=== PATIENT | male | born 1985 | race Caucasian/White ===

== ENCOUNTER 2017-08-26 09:22 | Observation (INO) | payer OTHER, SELFPAY ==
[2017-08-26 09:24] VITALS: BMI 26.6
--- NOTE | 2017-08-26 10:00 | ED PDOC ---
HPI: Skin/Bite Injury Time Seen by Provider: 08/26/17 09:35 Chief Complaint (Nursing): Abnormal Skin Integrity Chief Complaint (Provider): Abnormal Skin Integrity History Per: Patient History/Exam Limitations: no limitations Onset/Duration Of Symptoms: Days (x 3) Current Symptoms Are (Timing): Still Present Quality Of Symptoms: Itching Additional Complaint(s): 32 year old HIV positive male presents to the ED with a itchy rash for the last 3 days. He is from [place] and reports that his vaccinations are UTD. Denies any other complaints. PMD: none provided Past Medical History Reviewed: Historical Data, Nursing Documentation, Vital Signs Vital Signs: Last Vital Signs Temp 98.5 F 08/26/17 09:25 Pulse 105 H 08/26/17 09:25 Resp 17 08/26/17 09:25 BP 155/95 H 08/26/17 09:25 Pulse Ox 98 08/26/17 09:27 - Medical History PMH: HIV Denies: Chronic Kidney Disease - Surgical History Surgical History: No Surg Hx - Family History Family History: States: Unknown Family Hx - Immunization History Hx Tetanus Toxoid Vaccination: No Hx Influenza Vaccination: No Hx Pneumococcal Vaccination: No - Home Medications Home Medications: Ambulatory Orders Medication Instructions Recorded Acetaminophen [Tylenol 325mg tab] 650 mg PO PRN PRN 09/10/16 Acetaminophen [Tylenol 325mg tab] 650 mg PO Q6 PRN tab 09/19/16 Ketorolac [Toradol] 30 mg IVP STAT vial 09/19/16 Ondansetron [Zofran Inj] 4 mg IVP Q6H PRN vial 09/19/16 Topiramate [Topamax] 25 mg PO HS tab 09/19/16 levETIRAcetam [Keppra] 500 mg IVPB Q12H vial 09/19/16 levETIRAcetam [Keppra] 500 mg IVPB Q12H vial 09/19/16 - Allergies Allergies/Adverse Reactions: Allergies Allergy/AdvReac Type Severity Reaction Status Date / Time No Known Allergies Allergy Verified 08/26/17 09:27 Review of Systems ROS Statement: Except As Marked, All Systems Reviewed And Found Negative Skin: Positive for: Rash Physical Exam - Reviewed Nursing Documentation Reviewed: Yes Vital Signs Reviewed: Yes - Physical Exam Appears: Positive for: No Acute Distress Head Exam: Positive for: ATRAUMATIC, NORMOCEPHALIC Skin: Positive for: Rash (general vesicular rsh in different stages of healing. No (-) secondary infection noted) Eye Exam: Positive for: EOMI, Normal appearance, PERRL Neck: Positive for: Normal Cardiovascular/Chest: Positive for: Regular Rate, Rhythm Respiratory: Positive for: CNT, Normal Breath Sounds Gastrointestinal/Abdominal: Positive for: Normal Exam, Soft Neurologic/Psych: Positive for: Alert, Oriented (x 3) - ECG O2 Sat by Pulse Oximetry: 98 (RA) Pulse Ox Interpretation: Normal Medical Decision Making Medical Decision Making: Time; 09:56 Impression: rash Initial Plan: --EKG --CMP --CBC --Chest x-ray --Acyclovir 800 mg in NS 100 ml IV --Blood cx Scribe Attestation: Documented by Chika Jorge, acting as a scribe for Tiffany Lamas MD Provider Scribe Attestation: All medical record entries made by the Scribe were at my direction and personally dictated by me. I have reviewed the chart and agree that the record accurately reflects my personal performance of the history, physical exam, medical decision making, and the department course for this patient. I have also personally directed, reviewed, and agree with the discharge instructions and disposition. Disposition - Disposition Forms: [employer] ([place])
[2017-08-26 10:17] LABS: BASO % 0.4 % (0.0-2.0); HEMOGLOBIN 15.9 g/dL (12.0-18.0); LYMPH # 1.8 K/uL (1.0-4.3); LYMPH % 17.6 % (20.0-40.0); MEAN CELL VOLUME 86.4 fl (80.0-94.0); MEAN CORPUSCULAR HGB CONC 34.7 g/dL (33.0-37.0); MEAN PLATELET VOLUME 8.5 fl (7.2-11.7); MONO # 1.4 K/uL (0.0-0.8); MONO % 14.1 % (0.0-10.0); NEUT # 6.9 K/uL (1.8-7.0); NEUT % 67.9 % (50.0-75.0); NRBC % 0.1 % (0.0-0.0); RBC 5.3 Mil/uL (4.40-5.90); RED CELL DISTRIBUTION WIDTH 13.6 % (11.5-14.5); WHITE BLOOD COUNT 10.2 K/uL (4.8-10.8)
[2017-08-26 10:28] LABS: ALB/GLOB RATIO 1.1 (1.0-2.1); ALBUMIN 4.6 g/dL (3.5-5.0); ALT/SGPT 90 U/L (21-72); AST/SGOT 49 U/L (17-59); BLOOD UREA NITROGEN 12 mg/dl (9-20); CALCIUM 9.4 mg/dL (8.4-10.2); GFR AFRICAN-AMERICAN > 60; GFR NON-AFRICAN AMERICAN > 60
--- NOTE | 2017-08-26 10:58 | RAD ---
HISTORY: Admission COMPARISON: No prior. FINDINGS: LUNGS: No active pulmonary disease. PLEURA: No significant pleural effusion identified, no pneumothorax apparent. CARDIOVASCULAR: Normal. OSSEOUS STRUCTURES: No significant abnormalities. VISUALIZED UPPER ABDOMEN: Normal. OTHER FINDINGS: None. IMPRESSION: No active disease.
--- NOTE | 2017-08-26 12:50 | CP.PCM.HP ---
History of Present Illness - History of Present Illness History of Present Illness: 32 y/o M with a PMHx of positive-HIV presented to ED c/o 3 days-Hx of fever and rash. Rash started on frontal head, painless, is pruritic at times and has extends down to his entire body. Pt reports associated generalized body aches and weakness. Pt reports being adherent to all his medications, takes 4 in total. No recent travel outside of [facility]. No ill contacts. PMD: Dr Galloway. 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 PSHx: denied FHx: NC, denied SHx: Pt stopped smoking 10 years ago, smoked for 8 years ~2ppd. Pt stopped alcohol intake for >1 year. No rec drugs use. ED Course: --CBC and CMP were abnormal. --Chest x-ray - No active disease. --EKG-unremarkable. --Acyclovir 800 mg in NS 100 ml IV x1 dose administered. --F/U Blood Cx. Present on Admission - Present on Admission Any Indicators Present on Admission: No Review of Systems - Constitutional Constitutional: absent: Anorexia, Weight Gain - EENT Eyes: absent: Change in Vision, Diplopia, Discharge Ears: absent: Decreased Hearing, Ear Discharge Nose/Mouth/Throat: absent: Epistaxis, Nasal Trauma, Bleeding Gums, Neck Mass - Cardiovascular Cardiovascular: absent: Acrocyanosis, Chest Pain, Claudication - Respiratory Respiratory: absent: Cough, Dyspnea, Hemoptysis, Dyspnea on Exertion, Snoring, Stridor - Gastrointestinal Gastrointestinal: absent: Bloating, Change in Bowel Habits, Change in Stool Character, Constipation, Diarrhea - Genitourinary Genitourinary: absent: Change in Urinary Stream, Dysuria - Psychiatric Psychiatric: absent: Anhedonia, Anxiety, Behavioral Changes, Change in Appetite Past Patient History - Infectious Disease Hx of Infectious Diseases: None - Past Social History Smoking Status: Former Smoker - NEUROLOGICAL Other/Comment: headache for 15 days - HEENT Hx HEENT Problems: No - RENAL Hx Chronic Kidney Disease: No - ENDOCRINE/METABOLIC Hx Endocrine Disorders: No - HEMATOLOGICAL/ONCOLOGICAL Hx Human Immunodeficiency Virus (HIV): Yes - INTEGUMENTARY Hx Dermatological Problems: No - MUSCULOSKELETAL/RHEUMATOLOGICAL Hx Musculoskeletal Disorders: No Hx Falls: No - GASTROINTESTINAL Hx Gastrointestinal Disorders: No - GENITOURINARY/GYNECOLOGICAL Hx Genitourinary Disorders: No - PSYCHIATRIC Hx Psychophysiologic Disorder: No Hx Substance Use: No - SURGICAL HISTORY Hx Surgeries: No - ANESTHESIA Hx Anesthesia: No Meds Allergies/Adverse Reactions: Allergies Allergy/AdvReac Type Severity Reaction Status Date / Time No Known Allergies Allergy Verified 08/26/17 09:27 Physical Exam - Constitutional Appears: No Acute Distress - Head Exam Head Exam: NORMAL INSPECTION - Eye Exam Eye Exam: EOMI - ENT Exam ENT Exam: Mucous Membranes Moist, Normal Exam, Normal Oropharynx - Neck Exam Neck exam: Positive for: Full Rom, Normal Inspection. Negative for: Lymphadenopathy, Meningismus - Respiratory Exam Respiratory Exam: Clear to Auscultation Bilateral, NORMAL BREATHING PATTERN - Cardiovascular Exam Cardiovascular Exam: REGULAR RHYTHM, +S1, +S2 - GI/Abdominal Exam GI & Abdominal Exam: Normal Bowel Sounds, Soft. absent: Diminished Bowel Sounds , Guarding, Rebound, Rigid, Tenderness - Extremities Exam Extremities exam: Positive for: full ROM, normal inspection, pedal edema. Negative for: calf tenderness, joint swelling, tenderness - Neurological Exam Neurological exam: Alert, Oriented x3 - Skin Additional comments: Presence of maculo-papular dermatitis scattered all around body, most of the dermatological lesions appears crusted. Results - Vital Signs Recent Vital Signs: Last Vital Signs Temp 99.3 F 08/26/17 11:03 Pulse 88 08/26/17 11:03 Resp 20 08/26/17 11:03 BP 139/82 08/26/17 11:03 Pulse Ox 96 08/26/17 11:03 - Labs Result Diagrams: 08/26/17 10:10 08/26/17 10:10 Labs: Laboratory Results - last 24 hr 08/26/17 08/26/17 10:10 10:10 WBC 10.2 D RBC 5.30 Hgb 15.9 D Hct 45.8 MCV 86.4 D MCH 30.0 MCHC 34.7 RDW 13.6 Plt Count 208 MPV 8.5 Neut % (Auto) 67.9 Lymph % (Auto) 17.6 L [place] % (Auto) 14.1 H Eos % (Auto) 0.0 Baso % (Auto) 0.4 Neut # (Auto) 6.9 Lymph # (Auto) 1.8 [place] # (Auto) 1.4 H Eos # (Auto) 0.0 Baso # (Auto) 0.0 Sodium 139 Potassium 3.9 Chloride 100 Carbon Dioxide 25 Anion Gap 18 BUN 12 Creatinine 0.7 L Est GFR ( Amer) > 60 Est GFR (Non-Af Amer) > 60 Random Glucose 115 H Calcium 9.4 Total Bilirubin 0.4 AST 49 ALT 90 H D Alkaline Phosphatase 131 H D Total Protein 8.9 H Albumin 4.6 Globulin 4.3 H Albumin/Globulin Ratio 1.1 Assessment & Plan - Assessment and Plan (Free Text) Assessment: 32 y/o M with a PMHx of HIV infection admitted for evaluation and management of exanthem. Exanthem -Varicella, most probable. -Acyclovir 800mg IV Q8H -ID consult, Dr Winchester. -Hydroxyzine PO and topical Calamine for pruritus AIDS -Last CD4 count 168 on 06/10/17 -%CD4: 9% on 06/10/17 -C/w Genvoya (HAART) -Atovaquone 1,500mg daily PO -F/U Blood Cx. -ID consult, Dr Winchester. Hx of CLAY WASHER-Toxoplasmosis -C/w Atovaquone 1,500mg PO daily, Keppra 500mg Q12H, Leucovorin 25mg PO daily. DVT prophylaxis -SCD's for now - Date & Time Date: 08/26/17 Time: 15:30
--- NOTE | 2017-08-26 13:18 | CP.PCM.CON ---
History of Present Illness - History of Present Illness History of Present Illness: 32 y/o M with a PMHx of positive-HIV presented to ED c/o 3 days-Hx of fever and rash. Rash started on frontal head, painless, is pruritic at times and has extends down to his entire body. Pt reports associated generalized body aches and weakness. Pt reports being adherent to all his medications, takes 4 in total. No recent travel outside of [facility]. No ill contacts. PMD: Dr Galloway. NKDA Medications: >Genvoya [phone] MG PO daily >Atovaquone Suspension, 750 MG/5ML, 10 ml PO daily >Leucovorin, 25mg, 1 tab, Oral, once a day, 30 days, 30 Tablet, Refills 3 >Levetiracetam 500 MG Tablet 1 tablet Orally Twice a day PMHx: [employer] Toxoplasmosis and HIV-positive, both diagnosed September 2016. PSHx: denied FHx: NC, denied SHx: Pt stopped smoking 10 years ago, smoked for 8 years ~2ppd. Pt stopped alcohol intake for >1 year. No rec drugs use. Review of Systems - Review of Systems All systems: reviewed and no additional remarkable complaints except Past Patient History - Infectious Disease Hx of Infectious Diseases: None - Past Social History Smoking Status: Former Smoker - NEUROLOGICAL Other/Comment: headache for 15 days - HEENT Hx HEENT Problems: No - RENAL Hx Chronic Kidney Disease: No - ENDOCRINE/METABOLIC Hx Endocrine Disorders: No - HEMATOLOGICAL/ONCOLOGICAL Hx Human Immunodeficiency Virus (HIV): Yes - INTEGUMENTARY Hx Dermatological Problems: No - MUSCULOSKELETAL/RHEUMATOLOGICAL Hx Musculoskeletal Disorders: No Hx Falls: No - GASTROINTESTINAL Hx Gastrointestinal Disorders: No - GENITOURINARY/GYNECOLOGICAL Hx Genitourinary Disorders: No - PSYCHIATRIC Hx Psychophysiologic Disorder: No Hx Substance Use: No - SURGICAL HISTORY Hx Surgeries: No - ANESTHESIA Hx Anesthesia: No Meds Allergies/Adverse Reactions: Allergies Allergy/AdvReac Type Severity Reaction Status Date / Time No Known Allergies Allergy Verified 08/26/17 09:27 Physical Exam - Constitutional Appears: No Acute Distress, Chronically Ill - Head Exam Head Exam: ATRAUMATIC, NORMOCEPHALIC - Eye Exam Eye Exam: absent: Scleral icterus - ENT Exam ENT Exam: Mucous Membranes Dry - Neck Exam Neck exam: Negative for: Lymphadenopathy - Respiratory Exam Respiratory Exam: Decreased Breath Sounds - Cardiovascular Exam Cardiovascular Exam: REGULAR RHYTHM - GI/Abdominal Exam GI & Abdominal Exam: Diminished Bowel Sounds, Soft. absent: Tenderness - Rectal Exam Rectal Exam: Deferred - Exam Exam: NORMAL INSPECTION - Extremities Exam Extremities exam: Positive for: pedal pulses present. Negative for: calf tenderness, pedal edema, tenderness - Back Exam Back exam: absent: CVA tenderness (L), CVA tenderness (R) - Neurological Exam Neurological exam: Alert, CN II-XII Intact, Oriented x3, Reflexes Normal - Psychiatric Exam Psychiatric exam: Normal Mood - Skin Skin Exam: Rash Additional comments: diffuse maculo papular rash mostly dry very rare vesicles face trunk extremities Results - Vital Signs Recent Vital Signs: Last Vital Signs Temp 99.3 F 08/26/17 11:03 Pulse 88 08/26/17 11:03 Resp 20 08/26/17 11:03 BP 139/82 08/26/17 11:03 Pulse Ox 96 08/26/17 11:03 - Labs Result Diagrams: 08/27/17 05:45 08/27/17 05:45 Labs: Laboratory Results - last 24 hr 08/26/17 08/26/17 10:10 10:10 WBC 10.2 D RBC 5.30 Hgb 15.9 D Hct 45.8 MCV 86.4 D MCH 30.0 MCHC 34.7 RDW 13.6 Plt Count 208 MPV 8.5 Neut % (Auto) 67.9 Lymph % (Auto) 17.6 L [place] % (Auto) 14.1 H Eos % (Auto) 0.0 Baso % (Auto) 0.4 Neut # (Auto) 6.9 Lymph # (Auto) 1.8 [place] # (Auto) 1.4 H Eos # (Auto) 0.0 Baso # (Auto) 0.0 Sodium 139 Potassium 3.9 Chloride 100 Carbon Dioxide 25 Anion Gap 18 BUN 12 Creatinine 0.7 L Est GFR ( Amer) > 60 Est GFR (Non-Af Amer) > 60 Random Glucose 115 H Calcium 9.4 Total Bilirubin 0.4 AST 49 ALT 90 H D Alkaline Phosphatase 131 H D Total Protein 8.9 H Albumin 4.6 Globulin 4.3 H Albumin/Globulin Ratio 1.1 Assessment & Plan (1) Varicella infection Status: Acute (2) Varicella infection Status: Acute (3) AIDS Status: Acute (4) AIDS (acquired immunodeficiency syndrome), CD4 <=200 Status: Acute (5) AIDS (acquired immunodeficiency syndrome), CD4 <=200 Status: Acute - Assessment and Plan (Free Text) Assessment: cont iv then po acyclovir 800 5x daily for 10 days
[2017-08-26] MEDS ORDERED: Calamine/Zinc Oxide LOTION TOP PRN (14:21)
--- NOTE | 2017-08-26 15:20 | CARD ---
APPROVED REPORT EKG Measurement Heart [id number] <Conclusion> Normal sinus rhythm Normal ECG
[2017-08-27 06:23] LABS: BASO % 0.3 % (0.0-2.0); EOS % 0.5 % (0.0-4.0); HEMOGLOBIN 15.1 g/dL (12.0-18.0); LYMPH # 1.4 K/uL (1.0-4.3); LYMPH % 19.6 % (20.0-40.0); MEAN CELL VOLUME 86.1 fl (80.0-94.0); MEAN CORPUSCULAR HEMOGLOBIN 29.4 pg (27.0-31.0); MEAN CORPUSCULAR HGB CONC 34.2 g/dL (33.0-37.0); MEAN PLATELET VOLUME 8.5 fl (7.2-11.7); MONO # 1.1 K/uL (0.0-0.8); MONO % 14.3 % (0.0-10.0); NEUT # 4.8 K/uL (1.8-7.0); NEUT % 65.3 % (50.0-75.0); NRBC % 0.1 % (0.0-0.0); RBC 5.13 Mil/uL (4.40-5.90); RED CELL DISTRIBUTION WIDTH 13.7 % (11.5-14.5); WHITE BLOOD COUNT 7.4 K/uL (4.8-10.8)
[2017-08-27 06:35] LABS: ALB/GLOB RATIO 1.1 (1.0-2.1); ALT/SGPT 72 U/L (21-72); AST/SGOT 39 U/L (17-59); BLOOD UREA NITROGEN 11 mg/dl (9-20); CALCIUM 9.5 mg/dL (8.4-10.2); GFR AFRICAN-AMERICAN > 60; GFR NON-AFRICAN AMERICAN > 60
--- NOTE | 2017-08-27 08:57 | CP.PCM.PN ---
Subjective - Date & Time of Evaluation Date of Evaluation: 08/27/17 Time of Evaluation: 07:35 - Subjective Subjective: 32 y/o M seen and examined by bedside. Pt reports feeling better, rash is improving, last fever episode 101degF at 8:44pm. Pt tolerating PO, ambulating with NO difficulties. Pt denies headache, chest pain, SOB, abdominal pain, nausea, diarrhea or calf pain. Objective - Vital Signs/Intake and Output Vital Signs (last 24 hours): Temp Pulse Resp BP Pulse Ox 98.7 F 81 20 126/83 97 08/27/17 08:01 08/27/17 08:01 08/27/17 08:01 08/27/17 08:01 08/27/17 08:01 - Medications Medications: Current Medications Acetaminophen (Tylenol 325mg Tab) 650 mg PO Q4 PRN PRN Reason: Fever >100.4 F Last Admin: 08/26/17 20:45 Dose: 650 mg Atovaquone (Mepron) 1,500 mg PO DAILY ROBEL PRN Reason: Protocol Calamine (Calamine Lotion) 1 applic TOP CONT PRN PRN Reason: Itching / Pruritus Home Med (Elviteg/Cob/Emtri/Tenof Alafen [Genvoya Tablet]) 1 tab PO DAILY ROBEL Hydroxyzine HCl (Atarax) 25 mg PO Q6 PRN PRN Reason: Itching / Pruritus Acyclovir 800 mg/ Sodium (Chloride) 250 mls @ 250 mls/hr IV Q8 ROBEL PRN Reason: Protocol Last Admin: 08/27/17 00:49 Dose: 250 mls/hr Leucovorin Calcium (Leucovorin) 25 mg PO DAILY ROBEL Levetiracetam (Keppra) 500 mg PO Q12 [facility] Last Admin: 08/26/17 20:45 Dose: 500 mg - Labs Labs: 08/27/17 05:45 08/27/17 05:45 - Constitutional Appears: No Acute Distress - Head Exam Head Exam: NORMAL INSPECTION - Eye Exam Eye Exam: EOMI - ENT Exam ENT Exam: Mucous Membranes Moist - Neck Exam Neck Exam: Full ROM. absent: Lymphadenopathy - Respiratory Exam Respiratory Exam: Clear to Ausculation Bilateral, NORMAL BREATHING PATTERN - Cardiovascular Exam Cardiovascular Exam: REGULAR RHYTHM, +S1, +S2 - GI/Abdominal Exam GI & Abdominal Exam: Soft, Tenderness, Normal Bowel Sounds - Extremities Exam Extremities Exam: Full ROM. absent: Calf Tenderness, Pedal Edema - Neurological Exam Neurological Exam: Alert, Awake, Oriented x3 - Skin Additional comments: Diffuse maculo-papular dermatitis improving in appereance, lest erythema, still presence of small crusted lesion. Assessment and Plan - Assessment and Plan (Free Text) Assessment: 32 y/o M with a PMHx of HIV infection admitted for evaluation and management of exanthem. Exanthem -Varicella, most probable. -Acyclovir 800mg IV Q8H -Hydroxyzine PO and topical Calamine for pruritus -Awaiting ID recommendations. -Varicella, Measles and Roseola titers ordered. AIDS -Last CD4 count 168 on 06/10/17 -%CD4: 9% on 06/10/17 -HIV viral load undetectable. -C/w Genvoya (HAART) -Atovaquone 1,500mg daily PO -F/U Blood Cx. -Awaiting ID recommendations, Dr Winchester. 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 -C/w Atovaquone 1,500mg PO daily, Keppra 500mg Q12H, Leucovorin 25mg PO daily. DVT prophylaxis -SCD's for now
[2017-08-27] MEDS ORDERED: Patient's Own Med (Elviteg/Cob/Emtri/Tenof Alafen [Genvoya Tablet] 1 TAB) PO SCH (09:00)
--- NOTE | 2017-08-27 12:02 | CP.PCM.PN ---
Subjective - Date & Time of Evaluation Date of Evaluation: 08/27/17 Time of Evaluation: 09:00 - Subjective Subjective: improving on IV acyclovir no signs of systemic toxicity , secondary infection or PHYSICAL INSTRUCTOR / pulm involvement Objective - Vital Signs/Intake and Output Vital Signs (last 24 hours): Temp Pulse Resp BP Pulse Ox 98.7 F 81 20 126/83 97 08/27/17 08:01 08/27/17 08:01 08/27/17 08:01 08/27/17 08:01 08/27/17 08:01 - Medications Medications: Current Medications Acetaminophen (Tylenol 325mg Tab) 650 mg PO Q4 PRN PRN Reason: Fever >100.4 F Last Admin: 08/26/17 20:45 Dose: 650 mg Atovaquone (Mepron) 1,500 mg PO DAILY ROBEL PRN Reason: Protocol Calamine (Calamine Lotion) 1 applic TOP CONT PRN PRN Reason: Itching / Pruritus Home Med (Elviteg/Cob/Emtri/Tenof Alafen [Genvoya Tablet]) 1 tab PO DAILY ROBEL Hydroxyzine HCl (Atarax) 25 mg PO Q6 PRN PRN Reason: Itching / Pruritus Acyclovir 800 mg/ Sodium (Chloride) 250 mls @ 250 mls/hr IV Q8 ROBEL PRN Reason: Protocol Last Admin: 08/27/17 00:49 Dose: 250 mls/hr Leucovorin Calcium (Leucovorin) 25 mg PO DAILY ROBEL Levetiracetam (Keppra) 500 mg PO Q12 [facility] Last Admin: 08/26/17 20:45 Dose: 500 mg - Labs Labs: 08/27/17 05:45 08/27/17 05:45 - Constitutional Appears: Non-toxic, Chronically Ill - Head Exam Head Exam: NORMOCEPHALIC - Eye Exam Eye Exam: PERRL - ENT Exam ENT Exam: Mucous Membranes Dry - Neck Exam Neck Exam: absent: Lymphadenopathy - Respiratory Exam Respiratory Exam: Decreased Breath Sounds - Cardiovascular Exam Cardiovascular Exam: REGULAR RHYTHM - GI/Abdominal Exam GI & Abdominal Exam: Distended, Soft Assessment and Plan (1) Varicella infection Status: Acute (2) Varicella infection Status: Acute (3) AIDS Status: Acute (4) AIDS (acquired immunodeficiency syndrome), CD4 <=200 Status: Acute (5) AIDS (acquired immunodeficiency syndrome), CD4 <=200 Status: Acute - Assessment and Plan (Free Text) Assessment: cont IV then PO acyclovir 800 5x daily for 10 days
[2017-08-27] MEDS: Atovaquone 750 mg/5 ml Susp UD PO SCH (13:03)
[2017-08-28 00:56] VITALS: O2SAT 98
[2017-08-28 07:49] VITALS: BP 134/81; PULSE 69; RESP 20; TEMP 98.1
--- NOTE | 2017-08-28 08:55 | CP.PCM.DIS ---
Provider - Provider Date of Admission: 08/26/17 11:14 Attending physician: Isela Davis MD Primary care physician: Dr Galloway. Consults: Infectious Disease: Dr Winchester. Time Spent in preparation of Discharge (in minutes): 25 Diagnosis - Discharge Diagnosis (1) Varicella infection Status: Acute Comment: Will complete 10 days of Acyclovir 800mg five times a day for 10 days. Hospital Course - Lab Results Lab Results: Micro Results 08/26/17 10:15 Blood Blood Culture - Preliminary NO GROWTH AFTER 24 HOURS 08/26/17 10:10 Blood Blood Culture - Preliminary NO GROWTH AFTER 24 HOURS Most Recent Lab Values WBC 7.4 K/uL (4.8-10.8) 08/27/17 05:45 RBC 5.13 Mil/uL (4.40-5.90) 08/27/17 05:45 Hgb 15.1 g/dL (12.0-18.0) 08/27/17 05:45 Hct 44.2 % (35.0-51.0) 08/27/17 05:45 MCV 86.1 fl (80.0-94.0) 08/27/17 05:45 MCH 29.4 pg (27.0-31.0) 08/27/17 05:45 MCHC 34.2 g/dL (33.0-37.0) 08/27/17 05:45 RDW 13.7 % (11.5-14.5) 08/27/17 05:45 Plt Count 196 K/uL (130-400) 08/27/17 05:45 MPV 8.5 fl (7.2-11.7) 08/27/17 05:45 Neut % (Auto) 65.3 % (50.0-75.0) 08/27/17 05:45 Lymph % (Auto) 19.6 % (20.0-40.0) L 08/27/17 05:45 [place] % (Auto) 14.3 % (0.0-10.0) H 08/27/17 05:45 Eos % (Auto) 0.5 % (0.0-4.0) 08/27/17 05:45 Baso % (Auto) 0.3 % (0.0-2.0) 08/27/17 05:45 Neut # (Auto) 4.8 K/uL (1.8-7.0) 08/27/17 05:45 Lymph # (Auto) 1.4 K/uL (1.0-4.3) 08/27/17 05:45 [place] # (Auto) 1.1 K/uL (0.0-0.8) H 08/27/17 05:45 Eos # (Auto) 0.0 K/uL (0.0-0.7) 08/27/17 05:45 Baso # (Auto) 0.0 K/uL (0.0-0.2) 08/27/17 05:45 Sodium 141 mmol/l (132-148) 08/27/17 05:45 Potassium 4.6 MMOL/L (3.6-5.0) 08/27/17 05:45 Chloride 99 mmol/L (98-107) 08/27/17 05:45 Carbon Dioxide 28 mmol/L (22-30) 08/27/17 05:45 Anion Gap 19 (10-20) 08/27/17 05:45 BUN 11 mg/dl (9-20) 08/27/17 05:45 Creatinine 0.7 mg/dl (0.8-1.5) L 08/27/17 05:45 Est GFR ( Amer) > 60 08/27/17 05:45 Est GFR (Non-Af Amer) > 60 08/27/17 05:45 Random Glucose 104 mg/dL (75-110) 08/27/17 05:45 Calcium 9.5 mg/dL (8.4-10.2) 08/27/17 05:45 Total Bilirubin 0.5 mg/dl (0.2-1.3) 08/27/17 05:45 AST 39 U/L (17-59) 08/27/17 05:45 ALT 72 U/L (21-72) 08/27/17 05:45 Alkaline Phosphatase 113 U/L (38-126) 08/27/17 05:45 Total Protein 7.9 G/DL (6.3-8.2) 08/27/17 05:45 Albumin 4.0 g/dL (3.5-5.0) 08/27/17 05:45 Globulin 3.8 gm/dL (2.2-3.9) 08/27/17 05:45 Albumin/Globulin Ratio 1.1 (1.0-2.1) 08/27/17 05:45 RPR Nonreactive (NONREACTIVE) 08/27/17 12:23 - Hospital Course Hospital Course: 32 y/o M with a PMHx of AIDS 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 Most probably pt has varicella. Pt received 3 days of IV Acyclovir treatment. ID consulted. Pt remained stable, tolerated PO and ambulating. Pt will be discharge with instructions to finish 10 days of PO Acyclovir 800mg 5x/day for 10 days. -Will f/u with PCP, DR Galloway within 1 week. - Date & Time of H&P Date of H&P: 08/26/17 Time of H&P: 12:49 Discharge Exam - Head Exam Head Exam: NORMAL INSPECTION, NORMOCEPHALIC - Eye Exam Eye Exam: EOMI, Normal appearance Pupil Exam: PERRL - ENT Exam ENT Exam: Mucous Membranes Moist - Neck Exam Neck exam: Full Rom, Normal Inspection - Respiratory Exam Respiratory Exam: Clear to PA & Lateral, UNREMARKABLE - Cardiovascular Exam Cardiovascular Exam: REGULAR RHYTHM, +S1, +S2 - GI/Abdominal Exam GI & Abdominal Exam: Normal Bowel Sounds, Soft, Unremarkable. absent: Hernia, Tenderness - Neurological Exam Neurological exam: Alert, Oriented x3 - Skin Additional comments: Presence of scattered maculo-papular dermatitis around entire body, lesions of b /l leg have remarkably improved and less erythematous and disappearing. Discharge Plan - Discharge Medications Prescriptions: Acyclovir [Zovirax] 800 mg PO 5XD #50 tablet - Follow Up Plan Condition: STABLE Disposition: HOME/ ROUTINE Instructions: Viral Exanthem (DC) Additional Instructions: -Please f/u with Dr Galloway, within 1 week. -Por favor, moustapha cisneros doctor primario Dr Canchola dentro de 1 semana. -Por favor siga con [facility] y termine el anti-viral (Acyclovir), q tiene que tomarlo 5x al nusrat por 10 kerr Referrals: Duglas Galloway MD [Staff Provider] - Woody Winchester MD [Staff Provider] -
[2017-08-28] MEDS: Atovaquone 750 mg/5 ml Susp UD PO SCH (12:12)
--- NOTE | 2017-08-28 14:06 | CP.PCM.PN ---
Subjective - Date & Time of Evaluation Date of Evaluation: 08/28/17 Time of Evaluation: 08:00 - Subjective Subjective: rash improving iv rx in progress Objective - Vital Signs/Intake and Output Vital Signs (last 24 hours): Temp Pulse Resp BP Pulse Ox 98.1 F 69 20 134/81 98 08/28/17 07:47 08/28/17 07:47 08/28/17 07:47 08/28/17 07:47 08/28/17 07:47 - Medications Medications: Current Medications Acetaminophen (Tylenol 325mg Tab) 650 mg PO Q4 PRN PRN Reason: Fever >100.4 F Last Admin: 08/26/17 20:45 Dose: 650 mg Calamine (Calamine Lotion) 1 applic TOP CONT PRN PRN Reason: Itching / Pruritus Last Admin: 08/27/17 10:32 Dose: 1 applic Home Med (Elviteg/Cob/Emtri/Tenof Alafen [Genvoya Tablet]) 1 tab PO DAILY [facility] Hydroxyzine HCl (Atarax) 25 mg PO Q6 PRN PRN Reason: Itching / Pruritus Acyclovir 800 mg/ Sodium (Chloride) 250 mls @ 250 mls/hr IV Q8 ROBEL PRN Reason: Protocol Last Admin: 08/28/17 11:30 Dose: 250 mls/hr Leucovorin Calcium (Leucovorin) 25 mg PO DAILY [facility] Last Admin: 08/28/17 12:08 Dose: 25 mg Levetiracetam (Keppra) 500 mg PO Q12 [facility] Last Admin: 08/28/17 12:09 Dose: 500 mg - Labs Labs: 08/27/17 05:45 08/27/17 05:45 - Constitutional Appears: Non-toxic, Chronically Ill - Head Exam Head Exam: NORMOCEPHALIC - Eye Exam Eye Exam: PERRL - ENT Exam ENT Exam: Mucous Membranes Dry - Neck Exam Neck Exam: absent: Lymphadenopathy - Respiratory Exam Respiratory Exam: Decreased Breath Sounds - Cardiovascular Exam Cardiovascular Exam: REGULAR RHYTHM - GI/Abdominal Exam GI & Abdominal Exam: Distended - Rectal Exam Rectal Exam: Deferred - Exam Exam: NORMAL INSPECTION - Extremities Exam Extremities Exam: absent: Pedal Edema - Back Exam Back Exam: absent: CVA tenderness (L), CVA tenderness (R) Assessment and Plan (1) Varicella infection Status: Acute (2) Varicella infection Status: Acute (3) AIDS Status: Acute (4) AIDS (acquired immunodeficiency syndrome), CD4 <=200 Status: Acute (5) AIDS (acquired immunodeficiency syndrome), CD4 <=200 Status: Acute
== END 2017-08-28 15:44 | disposition home or self-care (01) ==
LOC: H.ER 09:22 → INTOOBSV 11:14 → H.ERHOLD 11:14 → H.MEDSURG1 22:39 → H.ERHOLD 22:43
PROVIDERS: ADMIT Family Medicine Geriatric Medicine; ATTEND Family Medicine Geriatric Medicine
DX: B01.9 Varicella without complication (principal); B20 Human immunodeficiency virus [HIV] disease; L29.9 Pruritus, unspecified; Z87.891 Personal history of nicotine dependence; R51 Headache; Z79.899 Other long term (current) drug therapy; R21 Rash and other nonspecific skin eruption
CPT/HCPCS: 36415; 71045; 80053; 85025; 86592; 86765; 86787; 86790; 87040; 93005; 99285; G0378; J0133